=== PATIENT | female | born 1945 | race Caucasian/White ===

== ENCOUNTER 2022-05-29 11:26 | Emergency (ER) | payer OTHER, SELFPAY ==
--- NOTE | ~2022-05-29 | XR_ITS ---
EXAMINATION: XR soft tissue neck DATE: 05/29/2022 12:04 INDICATION: Dysphagia. TECHNIQUE: 2 views of the neck soft tissues were obtained. COMPARISON: None. FINDINGS: The adenoids, palatine tonsils, prevertebral soft tissues, epiglottis, and airway are shelbi l. No radiopaque foreign body. There are changes of posterior fusion procedure from the skull base to C2. There is severe cervical spondylosis. There may be a fracture deformity of the dens. IMPRESSION: 1. Normal neck soft tissues. Reviewed, dictated and finalized at location A.
--- NOTE | 2022-05-29 11:27 | ED.URI ---
HPI - URI/Sore Throat General Chief Complaint: Upper Respiratory Infection Stated Complaint: sore throat congestion Time Seen by Provider: 05/29/22 11:27 Source: patient Mode of arrival: ambulatory Limitations: no limitations History of Present Illness HPI Narrative: Ms. Hernandes is a 76-year-old female patient presenting to the clinic today with complaints of sore throat x2 days. She reports her throat is so painful and swollen that she is having difficulty swallowing. Has been having to do liquids due to the pain. 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 elicited complaint: sore throat Related Data Home Medications Medication Instructions Recorded Confirmed albuterol 90 mcg/actuation aerosol 90 mcg inhalation Q4H PRN Dyspnea 05/29/22 05/29/22 inhaler azathioprine 100 mg tablet 100 mg PO DAILY 05/29/22 05/29/22 azithromycin 250 mg tablet 250 mg PO 3XW 05/29/22 05/29/22 hydroxychloroquine 200 mg tablet 200 mg PO BID 05/29/22 05/29/22 pravastatin 20 mg tablet 20 mg PO DAILY 05/29/22 05/29/22 Allergies Allergy/AdvReac Type Severity Reaction Status Date / Time Penicillins Allergy Unknown Hives / Verified 05/29/22 11:39 Red Face Review of Systems Review of Systems: Pertinent positives per HPI. Patient denies any fever, chills, rash, headache, visual changes, dizziness, cough, shortness of breath, chest pain, palpitations, nausea, vomiting, diarrhea, constipation, abdominal pain, or any urinary issues. PMFSH Comments At the time of my signature, I reviewed and agree with the nursing past medical, surgical, social, and family history. There is no relevant family history pertinent to the patient complaint. Exam Narrative: General: Well-developed, well nourished, in no apparent distress Head: Normocephalic, atraumatic Eyes: Pupils equally round and reactive to light bilaterally, EOM intact, sclera and conjunctive clear, no discharge, lids normal Ears: TMs intact and clear, ear canals clear, no drainage, grossly hearing normal. Nose: Nares patent, no discharge, no inflammation, no sinus tenderness. Mouth: Oral pharynx without lesions or masses, good dentition, MMM. Oropharynx red, erythemic, swollen, no drooling noted Neck: Supple, trachea midline, no enlargement of anterior or posterior cervical nodes, no thyroid masses or goiter palpable. Cardio: Regular rate and rhythm, s1 and s2 normal, no murmur appreciated. Resp: Clear to auscultation bilaterally, no rhonchi, rales, wheezing or rubs Course Course Emergency Course: Portions of this record may have been created with voice recognition software. Level of Care: Express Care Visit Vital Signs Vital signs: Vital Signs Temperature 36.7 C 05/29/22 11:35 Pulse Rate 74 05/29/22 11:35 Respiratory Rate 20 05/29/22 11:35 Blood Pressure 146/96 H 05/29/22 11:35 Pulse Oximetry 93 05/29/22 11:35 Oxygen Delivery Room Air 05/29/22 11:35 Temperature 36.7 C 05/29/22 11:41 Pulse Rate 74 05/29/22 11:41 Respiratory Rate 20 05/29/22 11:41 Blood Pressure 146/96 H 05/29/22 11:41 Pulse Oximetry 93 05/29/22 11:41 Oxygen Delivery Room Air 05/29/22 11:41 Vital signs reviewed MDM - URI/Sore Throat MDM Narrative Medical decision making narrative: At the time of visit patient is resting comfortably on the exam table. I suspect the patient has acute pharyngitis. Strep test and influenza testing was negative in the clinic today. X-ray of soft tissues of the neck was obtained to rule out epiglottitis and this was normal. We will place patient on prescription for some azithromycin, prednisolone, and also viscous lidocaine to help with pain. Supportive measures were discussed with the patient she voiced understanding of discharge instructions and agrees to the treatment plan. Differential Diagnosis Differential diagnosis: Likely upper respiratory infection, otitis media, sinusitis, viral infection, bronchit
[2022-05-29 11:35] VITALS: BP 146/96; PULSE 74; RESP 20; TEMP 36.7; O2SAT 93
[2022-05-29 11:41] VITALS: BP 146/96; PULSE 74; RESP 20; TEMP 36.7; O2SAT 93
== END 2022-05-29 12:26 | disposition home or self-care (01) ==
PROVIDERS: Emergency Provider Nurse Practitioner Family
DX: J02.9 Acute pharyngitis, unspecified (principal); E78.00 Pure hypercholesterolemia, unspecified
CPT/HCPCS: 70360; 87081; 87804; 87880; 99213; G0463